=== PATIENT | female | born 1985 | race Asian ===

== ENCOUNTER 2016-11-17 07:39 | Day surgery (SDC) | payer OTHER ==
[~2016-11-17] VITALS: Ht 149.9 cm; Wt 58.8 kg
[~2016-11-17 07:39] MED LIST: FERR-55 PO; PREN-39 PO
[2016-11-17] MEDS ORDERED: OMEPRAZOLE (07:53)
[2016-11-17 07:55] VITALS: BMI 30.9
[2016-11-17 09:32] VITALS: Ht 149.9 cm; Wt 58.8 kg
[2016-11-17] MEDS ORDERED: BIRTH CONTROL PO (09:37)
[2016-11-17] MEDS ORDERED: INHALER INH (09:37)
[2016-11-17 09:44] VITALS: BP 126/76; PULSE 85; RESP 17
[2016-11-17] MEDS ORDERED: FENTAnyl 50 MCG/ML VIAL ONE (10:01)
[2016-11-17] MEDS ORDERED: MIDAZOLAM 1 MG/ML 2 ML INJ ONE ×3 (10:01→10:02)
[2016-11-17 10:20] VITALS: BP 98/58; PULSE 56; RESP 14
--- NOTE | 2016-11-17 10:37 | GILP ---
DATE OF PROCEDURE: NAME OF PROCEDURE: Colonoscopy. SURGEON: Meera Roland MD PREOPERATIVE DIAGNOSIS: Positive occult blood in stool. POSTOPERATIVE DIAGNOSES 1. Colonoscopy all the way to the cecum. 2. Internal hemorrhoids. 3. No colon neoplasm was identified. INDICATION FOR THE PROCEDURE: Ms. Morelia Kirkpatrick is a 31-year-old female patient who had lower abdo mary ann pain and positive occult blood in stool. Patient was scheduled for colonoscopy for further ev aluation. The procedure and possible complications are well explained to the patient. The patient understood and consented to the procedure. DESCRIPTION OF PROCEDURE: Under the influence of fentanyl and Versed, the colonoscope was carefully introduced into the rectum and under direct vision, it was advanced all the way to the cecum. FINDINGS: The patient had internal hemorrhoids. No colitis or neoplasm was identified. She tolerated the procedure very well and there was no complication from the procedures. At the end of the procedures, she was awake with stable vital signs and she was discharged home to the care of her family. IMPRESSION: 1. Colonoscopy all the way to the cecum. 2. Internal hemorrhoids. 3. No colitis or neoplasm was identified. Dictated By: MEERA ARCHIBALD/CHITO Conf#: [id number] DID#: [id number]
== END 2016-11-17 15:23 | disposition home or self-care (01) ==
LOC: GIL 07:39
PROVIDERS: ATTEND Internal Medicine Gastroenterology
DX: K92.1 Melena (principal); K64.8 Other hemorrhoids
CPT/HCPCS: 45378; 84703; J2250; J3010; Z7610

== ENCOUNTER 2018-11-18 06:11 | Day surgery (SDC) | payer OTHER ==
[~2018-11-18] VITALS: Ht 149.9 cm; Wt 63.2 kg
[~2018-11-18 06:11] MED LIST changes: +BIRTH CONTROL PO; +INHALER INH
[2018-11-18 06:41] VITALS: Ht 149.9 cm; Wt 63.2 kg
[2018-11-18] MEDS ORDERED: LEVO50TA71 PO (06:49)
[2018-11-18] MEDS ORDERED: BECL10.6 IH (06:49)
[2018-11-18] MEDS ORDERED: ALLERGY SHOT (06:49)
[2018-11-18 07:18] VITALS: BP 108/66; PULSE 62; RESP 20
[2018-11-18] MEDS ORDERED: FENTAnyl 50 MCG/ML VIAL ONE (08:16)
[2018-11-18] MEDS ORDERED: MIDAZOLAM 1 MG/ML 2 ML INJ ONE (08:16)
[2018-11-18 08:30] VITALS: BP 108/58; RESP 16
--- NOTE | 2018-11-19 06:32 | CONS ---
DATE OF ADMISSION: 11/18/2018 DATE OF CONSULTATION: Dear Dr. Brock: I thank you very much for this kind referral. HISTORY OF PRESENT ILLNESS: Ms. Morelia Kirkpatrick is a 33-year-old female patient who has been referred to me for further evaluation of chronic heartburn not responding to therapy with omeprazole. The pa cher had upper GI x-ray done and she was noted to have nodular gastritis. No past history of peptic ulcer disease. Not on nonsteroidal anti-inflammatory agents. Appetite is good and no weight loss. No history of gallstones or liver disease. The patient denies any change in the bowel habit or rect al bleeding. No past history of inflammatory bowel disease or colon neoplasm. Not a hypertensive or diabetic. No heart disease. She has history of bronchial asthma, has hypothyroidism. SOCIAL HISTORY: Nonsmoker. No alcohol abuse. FAMILY HISTORY: No family history of gastrointestinal tract neoplasm. ALLERGIES: NO DRUG ALLERGIES. MEDICATIONS: 1. Omeprazole. 2. Levothyroxine. PHYSICAL EXAMINATION VITAL SIGNS: She is 5 feet tall and weighs 139 pounds. HEART: Normal heart sounds. LUNGS: Clear. ABDOMEN: Soft. No masses. Normal bowel sounds. NEUROLOGIC: Normal neurological exam. IMPRESSION: 1. Chronic heartburn, not responding to therapy with omeprazole. 2. The patient had upper GI x-ray done and she was noted to have nodular gastric mucosa. 3. Hypothyroidism. 4. Bronchial asthma. PLAN: Endoscopy for further evaluation. The procedure and possible complications are well explained to the patient. She understands and cons ents to the procedure. I thank you once again. With warmest personal regards, Dictated By: BRIAN KELLER MD GD/NTS Conf#: [id number] DID#: [id number] CC: CELESTINE BROCK MD;*EndCC*
== END 2018-11-18 16:00 | disposition home or self-care (01) ==
LOC: GIL 06:11
PROVIDERS: ATTEND Internal Medicine Gastroenterology
DX: K21.0 Gastro-esophageal reflux disease with esophagitis (principal); E03.9 Hypothyroidism, unspecified; J45.909 Unspecified asthma, uncomplicated
CPT/HCPCS: 43239; 84703; 88305; 88312; J2250; J3010; Z7610